=== PATIENT | female | born 1990 | race Caucasian/White ===

== ENCOUNTER → 2017-01-21 | Outpatient (CLI) | payer OTHER ==
[~2017-01-21] MED LIST: BROMFED DM COU118 ML PO; FERROUS SULFAT325 M2 PO; FLONASE 50 MCG16 GM; MEDROL 4MG. DOSE4 MG PO; NOMEDS *; PRENATAL PLUS1 TA1 PO; SPRINTEC 35 MCG1 TAB; ZITHROMAX Z PA250 MG PO
[2017-01-23 03:36] LABS: Neisseria gonorrhoeae, NAA Negative (Negative)
== END ==
LOC: LAB 13:27
PROVIDERS: Nurse Practitioner Obstetrics & Gynecology
DX: Z72.51 High risk heterosexual behavior (principal)

== ENCOUNTER 2017-02-05 17:21 | Emergency (ER) | payer OTHER ==
[~2017-02-05] VITALS: Ht 165.1 cm; Wt 77.1 kg
--- NOTE | 2017-02-05 18:04 | Urgent Treatment Center Report ---
History of Present Issue Date/Time Seen by Provider 02/05/17 4476 Visit Reason Pt arrived:Walked Presenting Problem:PT STATES SORE THROAT, DEVENDRA EAR PAIN AND COUGH X1 WEEK Location if Accident: Onset of symptoms date/time:/ or onset unknown for:MEDICAL HX UNKNOWN Have you (or family members/close friends) recently traveled outside the [place]? N If Yes, where/when: Have you had exposure to infectious disease within the past month? TB? Other? Specify: Patient states that she has not felt well for over a week. States that she has been having bilateral ear pain, sorethroat, and drainage from her sinuses. States that she has pain when she swallows or coughs and feels like her throat is raw and irritated and worried that she may have strep throat ALLERGIES Coded Allergies: Penicillins (12/15/16) Sulfa (Sulfonamide Antibiotics) (12/15/16) cefaclor (From CECLOR) (12/15/16) cephalexin (From KEFLEX) (12/15/16) Home Medications Active Scripts Fluticasone Propionate (Flonase 50 Mcg Nasal [place]) 2 SPRAY NA DAILY #1 BOT Prov: 12/15/16 Reported Medications NORGESTIMATE-ETHINYL ESTRADIOL (Sprintec 28 Day Tablet) History Medical History General CAD? No Angina: No [place]: No Hypertension? No Hyperlipidemia? No CHF? No DVT? No PE? No COPD? No Asthma? No Anemia? No GERD? No Gastric ulcers? No GI Bleed? No Hernia? No Thyroid Problems? No Hypothyroidism? No CVA? No Seizures? No Diabetes? No Renal Insuffiency? No UTI? No Stones? No BPH? No GB Disease: No Nephritic Syndrome? No Asplenia? No Hepatitis? No Sickle Cell Disease? No Arthritis? No Migraines? No Cataracts? No Glaucoma? No MRSA? No HIV? No TB? No Anxiety? No Depression? No Cancer? No Immunization HX DT/Tetanus 1-4 YRS Flu Refused Pneumonia Never Had Surgical Hx Previous Surgery?Y ORAL SURGERY RIGHT FOOT 2011 [employer] Hx LMP 3 Weeks Ago Social History Smoking Hx Smoker: Current Every Day Smoker Tobacco: Yes Type Cigarettes Packs/day < 1 Pack Alcohol Alcohol: No Review of Systems All Other Systems Reviewed and Negative ENT ear pain, nose congestion, throat pain, throat swelling. Respiratory cough Physical Exam Vital Signs Vital Signs Date Time Temp Pulse Resp B/P Pulse O2 O2 Flow FiO2 Ox Delivery Rate 02/06 1732 97.9 69 20 119/75 98 General Appearance Appears ill, pale in color sitting on exam table Ear, Nose, Throat Throat red, irritated drainage noted, left ear red, TM buldging Respiratory Status Yes: trachea midline, chest symmetrical, non tender chest. No: respiratory distress. 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 No Results/Orders Laboratory Tests 02/05/17 1735: Group A Strep Screen NOT DETECTED Orders Procedure Date/time Status [facility] STREP SCREEN 02/05 1747 Complete Departure Departure Time of Disposition 1811 Disposition DC Home or Self Care(routine) Clinical Impression Primary Impression: Otitis media Qualifiers: Otitis media type: unspecified Chronicity: unspecified Laterality: left Qualified Code: H66.92 - Otitis media, unspecified, left ear Condition STABLE Patient Instructions DI for Otitis Media (Middle Ear Infection)-Child Additional Instructions Take medication as prescribed Follow up with family doctor Return if needed * Monitor Temp. Tylenol and/or Ibuprofen as needed. ER if fever is no less than 101 despite alternating Tylenol and Ibuprofen * Encourage fluids, water, Gatorade, powerade, pedialyte if infant/toddler/or child * Warm salt water gargles for throat irritation *Warm fluids *Sore throat lozenges *Sleep elevated Discharge Counseling Counseled pt/family regarding diagnosis, test results, medications/RX, home care, follow up needs Prescriptions Current Visit Scripts Azithromycin (Zithromycin (Z-MELVIN) 250MG Tab) 250 MG PO DAILY #6 TAB TAKE TWO (2) TABLETS ON DAY 1, THEN ONE (1) TABLET DAY #2 THRU #5 at 1812
--- NOTE | 2017-02-05 18:04 | Urgent Treatment Center Report ---
History of Present Issue Date/Time Seen by Provider 02/05/17 6206 Visit Reason Pt arrived:Walked Presenting Problem:PT STATES SORE THROAT, DEVENDRA EAR PAIN AND COUGH X1 WEEK Location if Accident: Onset of symptoms date/time:/ or onset unknown for:MEDICAL HX UNKNOWN Have you (or family members/close friends) recently traveled outside the [place]? N If Yes, where/when: Have you had exposure to infectious disease within the past month? TB? Other? Specify: Patient states that she has not felt well for over a week. States that she has been having bilateral ear pain, sorethroat, and drainage from her sinuses. States that she has pain when she swallows or coughs and feels like her throat is raw and irritated and worried that she may have strep throat ALLERGIES Coded Allergies: Penicillins (12/15/16) Sulfa (Sulfonamide Antibiotics) (12/15/16) cefaclor (From CECLOR) (12/15/16) cephalexin (From KEFLEX) (12/15/16) Home Medications Active Scripts Fluticasone Propionate (Flonase 50 Mcg Nasal [place]) 2 SPRAY NA DAILY #1 BOT Prov: 12/15/16 Reported Medications NORGESTIMATE-ETHINYL ESTRADIOL (Sprintec 28 Day Tablet) History Medical History General CAD? No Angina: No [place]: No Hypertension? No Hyperlipidemia? No CHF? No DVT? No PE? No COPD? No Asthma? No Anemia? No GERD? No Gastric ulcers? No GI Bleed? No Hernia? No Thyroid Problems? No Hypothyroidism? No CVA? No Seizures? No Diabetes? No Renal Insuffiency? No UTI? No Stones? No BPH? No GB Disease: No Nephritic Syndrome? No Asplenia? No Hepatitis? No Sickle Cell Disease? No Arthritis? No Migraines? No Cataracts? No Glaucoma? No MRSA? No HIV? No TB? No Anxiety? No Depression? No Cancer? 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 Respiratory cough Physical Exam Vital Signs Vital Signs Date Time Temp Pulse Resp B/P Pulse O2 O2 Flow FiO2 Ox Delivery Rate 02/06 1732 97.9 69 20 119/75 98 General Appearance Appears ill, pale in color sitting on exam table Ear, Nose, Throat Throat red, irritated drainage noted, left ear red, TM buldging Respiratory Status Yes: trachea midline, chest symmetrical, non tender chest. No: respiratory distress. 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 No Results/Orders Laboratory Tests 02/05/17 1735: Group A Strep Screen NOT DETECTED Orders Procedure Date/time Status [facility] STREP SCREEN 02/05 1747 Complete Departure Departure Time of Disposition 1811 Disposition DC Home or Self Care(routine) Clinical Impression Primary Impression: Otitis media Qualifiers: Otitis media type: unspecified Chronicity: unspecified Laterality: left Qualified Code: H66.92 - Otitis media, unspecified, left ear Condition STABLE Patient Instructions DI for Otitis Media (Middle Ear Infection)-Child Additional Instructions Take medication as prescribed Follow up with family doctor Return if needed * Monitor Temp. Tylenol and/or Ibuprofen as needed. ER if fever is no less than 101 despite alternating Tylenol and Ibuprofen * Encourage fluids, water, Gatorade, powerade, pedialyte if infant/toddler/or child * Warm salt water gargles for throat irritation *Warm fluids *Sore throat lozenges *Sleep elevated Discharge Counseling Counseled pt/family regarding diagnosis, test results, medications/RX, home care, follow up needs Prescriptions Current Visit Scripts Azithromycin (Zithromycin (Z-MELVIN) 250MG Tab) 250 MG PO DAILY #6 TAB TAKE TWO (2) TABLETS ON DAY 1, THEN ONE (1) TABLET DAY #2 THRU #5 at 1812
[2017-02-05] MEDS ORDERED: ZITHROMAX Z PA250 MG PO (18:12)
[2017-02-05 18:18] VITALS: BP 119/75
== END 2017-02-05 18:19 | disposition home or self-care (01) ==
LOC: UTC 17:21
DX: H66.92 Otitis media, unspecified, left ear (principal); F17.210 Nicotine dependence, cigarettes, uncomplicated; Z79.3 Long term (current) use of hormonal contraceptives